=== PATIENT | female | born 1955 | race Caucasian/White ===

== ENCOUNTER 2020-09-29 09:48 | Outpatient (CLI) | payer BC ==
--- NOTE | 2020-09-30 09:34 | Mammography Report ---
BILATERAL DIGITAL SCREENING MAMMOGRAM 3D/2D WITH AUGMENTATION: 09/29/2020 CLINICAL: Routine screening. Patient presents for routine screening. S/P bilateral augmentation. No prior exams were available for comparison. The tissue of both breasts is heterogeneously dense. T his may lower the sensitivity of mammography. Bilateral breast implants are intact. No significant masses, calcifications, or other findings are seen in either breast. IMPRESSION: NEGATIVE There is no mammographic evidence of malignancy. A 1 year screening mammogram is recommended. This exam was interpreted at Station ID: [id number]. NOTE: For mammograms, a report in lay terms will be sent to the patient. Approximately 15% of breast malignancies will not be visualized mammographically. In the management of a palpable breast mass, a negative mammogram must not discourage biopsy of a clinically suspicious lesion. Electronically Signed By: Pedro Pablo Laura M.D. ddp/nancirad:09/29/2020 10:52:01 ACR BI-RADS Category 1: Negative 3341F PARENCHYMAL PATTERN: (D) - The breast(s) demonstrate(s) heterogeneously dense fibroglandular megan ruelas. BI-RADS CATEGORY: (1) - 1 RECOMMENDATION: (ANNUAL) - Recommend routine annual screening mammography. [id number] 1 year screening LATERALITY: (B)
== END 2020-09-29 09:49 | disposition home or self-care (01) ==
LOC: DI 09:48
PROVIDERS: ATTEND Physician Assistant
DX: Z12.31 Encounter for screening mammogram for malignant neoplasm of breast (principal); Z98.82 Breast implant status

== ENCOUNTER 2022-08-22 12:45 | Outpatient (CLI) | payer MEDICARE ==
--- NOTE | 2022-08-22 13:47 | DEXA Report ---
PROCEDURE: Dexa Spine and/or Hip INDICATIONS: POST MENOPAUSAL TECHNIQUE: Dual energy x-ray absorptiometry (DXA) was performed on a [employer] System. Regions measur ed are the AP Spine, femoral neck, and if needed forearm. COMPARISON: None. FINDINGS: Lumbar Spine: Bone Mineral density 1.35 g/cm/cm,T score 1.5, normal Left Femoral Neck: Bone Mineral Density 1.15 g/cm/cm, T score 0.8, normal Left Hip: Bone Mineral Density 1.18 g/cm/cm,T score 1.4, normal (T score greater or equal to -1.0: NORMAL) (T score from -1.1 to -2.4: OSTEOPENIA) (T score less than or equal to -2.5 to: OSTEOPOROSIS) Impression: Normal bone mineral density in the lumbar spine and left hip. Patients with diagnosis of osteoporosis or osteopenia should have regular bone mineral density assess ment. For those eligible for Medicare, routine testing is allowed once every 2 years. Testing frequ ency can be increased for patients who have rapidly progressing disease or for those who are receivin g medical therapy to restore bone mass. Reviewed by: Dariusz Simon MD on 08/22/2022 1:46 PM PDT Approved by: Dariusz Simon MD on 08/22/2022 1:46 PM PDT Station ID: [id number]
--- NOTE | 2022-08-22 14:33 | XRAY Report ---
PROCEDURE: Knee 2 View BILAT INDICATIONS: POST MENOPAUSAL, BILATERAL OSTEOARTHRITIS OF KNEES TECHNIQUE: 2 views of the right and left knee(s) were acquired. COMPARISON: None. FINDINGS: Bones: No fractures or dislocations. No suspicious bony lesions. There is some mild right and [id number] left tricompartmental osteoarthritic type degenerative change present. Soft tissues: No joint effusion. No suspicious soft tissue calcifications. There are postsurgical changes in the subcutaneous tissues posterior to the left knee. IMPRESSION: 1. No evidence for acute osseous abnormality involving the right or left knee. 2. Mild to moderate osteoarthritic degenerative change left knee. 3. Mild osteoarthritic type degenerative change right knee. 4. Prior postsurgical changes in the subcutaneous tissues posterior to the left knee. Reviewed by: Dariusz Simon MD on 08/22/2022 2:32 PM PDT Approved by: Dariusz Simon MD on 08/22/2022 2:32 PM PDT Station ID: [id number]
== END 2022-08-22 12:46 | disposition home or self-care (01) ==
LOC: DI 12:45
PROVIDERS: ATTEND Internal Medicine
DX: N95.8 Other specified menopausal and perimenopausal disorders (principal); M17.0 Bilateral primary osteoarthritis of knee

== ENCOUNTER 2022-08-22 12:50 | Outpatient (CLI) | payer MEDICARE ==
--- NOTE | 2022-08-23 10:40 | Mammography Report ---
BILATERAL DIGITAL SCREENING MAMMOGRAM 3D/2D WITH AUGMENTATION: 08/22/2022 CLINICAL: Routine screening. Comparison is made to exam dated: 09/29/2020 mammogram - [facility], 02/22/2017 Alysa Hernandez. Both breasts are heterogeneously dense, which may obscure small masses (category c / 51-75% glandular tissue). Bilateral breast implants are intact. No significant masses, calcifications, or other findings are seen in either breast. There has been no significant interval change. IMPRESSION: NEGATIVE There is no mammographic evidence of malignancy. A 1 year screening mammogram is recommended. Based on the Tyrer Cuzick model (a risk assessment model) the patients lifetime risk is 9.7% and her 10 year risk is 4.7%. According to the ACR, ACS, and NCCN guidelines, an annual breast MRI exam nette g with mammogram is recommended if the patients lifetime risk is 20% or greater. This exam was interpreted at Station ID: [id number]. NOTE: For mammograms, a report in lay terms will be sent to the patient. Approximately 15% of breast malignancies will not be visualized mammographically. In the management of a palpable breast mass, a negative mammogram must not discourage biopsy of a clinically suspicious lesion. Electronically Signed By: Sunny Kenney M.D. slc/:08/22/2022 16:04:14 letter sent: No_Letter ACR BI-RADS Category 1: Negative 3341F PARENCHYMAL PATTERN: (D) - The breast(s) demonstrate(s) heterogeneously dense fibroglandular megan ruelas. BI-RADS CATEGORY: (1) - 1 Mammogram [id number] 1 year screening LATERALITY: (B)
== END 2022-08-22 12:51 | disposition home or self-care (01) ==
LOC: DI 12:50
PROVIDERS: ATTEND Internal Medicine
DX: Z12.31 Encounter for screening mammogram for malignant neoplasm of breast (principal)

== ENCOUNTER 2023-11-11 09:16 | Outpatient (CLI) | payer MEDICARE, BC ==
[2023-11-11 14:58] LABS: BASOPHILS # (AUTO) 0.1 10^3/uL (0.0-0.1); BASOPHILS % (AUTO) 1.3 %; EOSINOPHILS # (AUTO) 0.1 10^3/uL (0.0-0.7); EOSINOPHILS % (AUTO) 2.3 %; HCT - HEMATOCRIT 44.5 % (37.0-47.0); HGB - HEMOGLOBIN 14.2 g/dL (12.0-16.0); LYMPHOCYTES # (AUTO) 2.3 10^3/uL (1.5-3.5); LYMPHOCYTES % (AUTO) 44.9 %; MEAN CORPUSCULAR HEMOGLOBIN 29.6 pg (27.0-31.0); MEAN CORPUSCULAR HGB CONC 31.9 g/dL (32.0-36.0); MEAN CORPUSCULAR VOLUME 92.9 fL (81.0-99.0); MONOCYTES # (AUTO) 0.4 10^3/uL (0.0-1.0); MONOCYTES % (AUTO) 7.9 %; NEUTROPHILS # (AUTO) 2.3 10^3/uL (1.5-6.6); NEUTROPHILS % (AUTO) 43.4 %; PLT - PLATELET COUNT 280 10^3/uL (130-450); RED BLOOD COUNT 4.79 10^6/uL (4.20-5.40); RED CELL DISTRIBUTION WIDTH 13.4 % (12.0-15.0); WHITE BLOOD COUNT 5.2 x10^3/uL (4.8-10.8)
[2023-11-11 15:49] LABS: ALBUMIN 4.7 g/dL (3.2-5.5); ALBUMIN/GLOBULIN RATIO 1.7 (1.0-2.2); ALKALINE PHOSPHATASE 47 IU/L (42-121); ALT ALANINE AMINOTRANSFERASE 19 IU/L (10-60); AST ASPARTATE AMINOTRANSFERASE 27 IU/L (10-42); BUN - BLOOD UREA NITROGEN 24 mg/dL (6-20); CALCIUM 10.1 mg/dL (8.5-10.3); CARBON DIOXIDE - CO2 30 mmol/L (21-32); CHLORIDE 102 mmol/L (101-111); CHOL/HDL RATIO 3.2 (<4.4); CHOLESTEROL 277 mg/dL; GFR - MDRD 55 (>89); GLUCOSE 102 mg/dL (74-104); HDL CHOLESTEROL 87 mg/dL; LDL CHOLESTEROL,CALCULATED 177 mg/dL; POTASSIUM 4.5 mmol/L (3.5-4.5); SODIUM 137 mmol/L (135-145); TOTAL PROTEIN 7.4 g/dL (6.4-8.9); TRIGLYCERIDES 63 mg/dL (48-352); VLDL CHOLESTEROL 13 mg/dL
[2023-11-11 15:50] LABS: THYROID STIMULATING HORMONE 1.39 uIU/mL (0.34-5.60)
[2023-11-13 10:13] LABS: LYME TOTAL AB CIA Negative (Negative)
== END 2023-11-11 09:17 | disposition home or self-care (01) ==
LOC: LAB.S 09:16
PROVIDERS: ATTEND Nurse Practitioner Acute Care
DX: Z13.228 Encounter for screening for other metabolic disorders (principal); Z13.220 Encounter for screening for lipoid disorders; Z13.29 Encounter for screening for other suspected endocrine disorder; Z13.0 Encounter for screening for diseases of the blood and blood-forming organs and certain disorders involving the immune mechanism; W57.XXXA Bitten or stung by nonvenomous insect and other nonvenomous arthropods, initial encounter; R53.83 Other fatigue
CPT/HCPCS: 36415; 80053; 80061; 81599; 83721; 84443; 85025; 86617; 86618

== ENCOUNTER 2023-11-20 13:04 | Outpatient (CLI) | payer MEDICARE, BC ==
--- NOTE | 2023-11-21 08:42 | Mammography Report ---
BILATERAL DIGITAL SCREENING MAMMOGRAM 3D/2D WITH AUGMENTATION: 11/20/2023 CLINICAL: Routine screening. Family history of breast cancer. Comparison is made to exams dated: 08/22/2022 mammogram and 09/29/2020 mammogram - [facility]. Both breasts are heterogeneously dense, which may obscure small masses (category c / 51-75% glandular tissue). Bilateral breast implants are stable There is possible architectural distortion in the left breast posterior depth lateral region seen on the craniocaudal view only. No other significant masses, calcifications, or other findings are seen in either breast. IMPRESSION: INCOMPLETE: NEEDS ADDITIONAL IMAGING EVALUATION The possible architectural distortion in the left breast is indeterminate. Additional views with pos sible ultrasound are recommended. Based on the Tyrer Cuzick model (a risk assessment model) the patient's lifetime risk is 17.7% and he r 10 year risk is 9.2%. According to the ACR, ACS, and NCCN guidelines, an annual breast MRI exam clay ng with mammogram is recommended if the patient's lifetime risk is 20% or greater. This exam was interpreted at Station ID: [id number]. NOTE: For mammograms, a report in lay terms will be sent to the patient. Approximately 15% of breast malignancies will not be visualized mammographically. In the management of a palpable breast mass, a negative mammogram must not discourage biopsy of a clinically suspicious lesion. Electronically Signed By: Sergio Gibson M.D. lc/:11/20/2023 15:29:19 ACR BI-RADS Category 0: Incomplete 3340F PARENCHYMAL PATTERN: (D) - The breast(s) demonstrate(s) heterogeneously dense fibroglandular parhermany ma. BI-RADS CATEGORY: (0) - 0 Mammo and [place] [id number] Immediate follow-up LATERALITY: (B)
== END 2023-11-20 13:05 | disposition home or self-care (01) ==
LOC: DI.S 13:04
PROVIDERS: ATTEND Nurse Practitioner Acute Care
DX: Z12.31 Encounter for screening mammogram for malignant neoplasm of breast (principal); R92.8 Other abnormal and inconclusive findings on diagnostic imaging of breast; R92.333 Mammographic heterogeneous density, bilateral breasts; Z98.82 Breast implant status; Z80.3 Family history of malignant neoplasm of breast

== ENCOUNTER 2023-12-12 13:35 | Outpatient (CLI) | payer MEDICARE, BC ==
--- NOTE | 2023-12-13 09:25 | Mammography Report ---
UNILATERAL LEFT DIGITAL DIAGNOSTIC MAMMOGRAM 3D/2D WITH SPOT COMPRESSION WITH AUGMENTATION: 12/12/2023 CLINICAL: Patient returns today to evaluate an asymmetry in the left breast. Comparison is made to exams dated: 11/20/2023 mammogram and 08/22/2022 mammogram - [facility]. The left breast is heterogeneously dense, which may obscure small masses (category c / 51-75% glandul ar tissue). Left breast implant is stable There is possible architectural distortion in the left breast posterior depth lateral region seen on the craniocaudal view only. No other significant masses or calcifications are seen in the breast. IMPRESSION: INCOMPLETE: NEEDS ADDITIONAL IMAGING EVALUATION The possible architectural distortion in the left breast is indeterminate. An ultrasound is recommen ded. Based on the Tyrer Cuzick model (a risk assessment model) the patient's lifetime risk is 17.7% and he r 10 year risk is 9.2%. According to the ACR, ACS, and NCCN guidelines, an annual breast MRI exam clay ng with mammogram is recommended if the patient's lifetime risk is 20% or greater. This exam was interpreted at Station ID: [id number]. NOTE: For mammograms, a report in lay terms will be sent to the patient. Approximately 15% of breast malignancies will not be visualized mammographically. In the management of a palpable breast mass, a negative mammogram must not discourage biopsy of a clinically suspicious lesion. Electronically Signed By: Sergio Gibson M.D. lc/:12/12/2023 14:28:51 ACR BI-RADS Category 0: Incomplete 3340F PARENCHYMAL PATTERN: (D) - The breast(s) demonstrate(s) heterogeneously dense fibroglandular megan ruelas. BI-RADS CATEGORY: (0) - 0 Ultrasound [id number] Immediate follow-up LATERALITY: (B)
--- NOTE | 2023-12-13 09:25 | Ultrasound Report ---
LIMITED ULTRASOUND OF LEFT BREAST: 12/12/2023 CLINICAL: Patient returns today to evaluate an architectural distortion in the left breast. Comparison is made to exams dated: 12/12/2023 mammogram, 11/20/2023 mammogram, 08/22/2022 mammogram, 09/29/2020 mammogram - [facility], and 02/22/2017 mammogram - [facility]. Ultrasound of the left breast 2-4 o'clock region was performed. Sauer scale images of the real-time examination were reviewed. No significant abnormalities were seen sonographically in the left breast. IMPRESSION: PROBABLY BENIGN There are no abnormalities seen in the left breast to correspond with the mammography findings at 2, 3, and 4 o'clock. A follow-up mammogram in 6 months is recommended to demonstrate stability. This exam was interpreted at Station ID: [id number]. Electronically Signed By: Sergio Gibson M.D. lc/:12/12/2023 14:29:41 Ultrasound BI-RADS: 3 Probably benign BI-RADS CATEGORY: (3) - 3 Mammogram [id number] 6 month follow-up LATERALITY: (B)
== END 2023-12-12 13:36 | disposition home or self-care (01) ==
LOC: DI 13:35
PROVIDERS: ATTEND Nurse Practitioner Acute Care
DX: R92.8 Other abnormal and inconclusive findings on diagnostic imaging of breast (principal); R92.332 Mammographic heterogeneous density, left breast